=== PATIENT | female | born 1950 | race Caucasian/White ===

== ENCOUNTER 2017-08-12 17:27 | Emergency (ER) | payer MEDICARE, OTHER ==
[~2017-08-12] VITALS: Ht 170.2 cm; Wt 78.3 kg
[~2017-08-12 17:27] MED LIST: AMBI12.5 PO; ASPI81 PO; DUONSOL2 NEB; FEXO180 PO; FISH1000 PO; GABA300C3 PO; LIDO5DIS35 TD; LORA-474 PO; MELA5CAP2 PO; NEXI40CA PO; ROSU20 PO; TOPR50TA PO; VARE1 PO; VENL75 PO; VITA5000 PO; [UNRECOGNIZED DRUG - CODE] OR
[2017-08-12 17:32] VITALS: BP 166/82; PULSE 69; RESP 16; TEMP 98.3; O2SAT 97
--- NOTE | 2017-08-12 17:49 | PD ---
HPI Chief Complaint: Edema Time Seen by Provider: 17:45 Travel History International Travel<30 days: No Contact w/Intl Traveler<30days: No Traveled to known affect area: No History of Present Illness HPI Patient comes in complaining of gradual swelling to bilateral lower extremities , been going on worsening over the last 2-3 days. She contacted her primary care who directed her to the emergency department. Patient states that it is alleviated by raising her legs and appears to worsen with standing or sitting activity. Patient denies any associated factors such as fever, shortness of breath, chest pain. Patient also denies nausea vomiting diarrhea abdominal pain flank pain. Patient also denies any associated runny nose/sore throat/ productive cough. No known drug allergy Past medical history significant for TIA, syncope, right bundle branch block, hypercholesterolemia, left upper lobe removed, sleep apnea, diverticulitis, esophageal spasms, hiatal hernia, GERD, reflux, cholecystectomy, appendectomy, claustrophobia, left lung cancer, esophageal strictures, fibromyalgia. PFSH Past Medical History Arthritis: Yes Cancer: Yes (LEFT LUNG CANCER) Cardiomyopathy: Yes (ANGINA, RBBB) Cardiovascular Problems: Yes High Cholesterol: Yes Chest Pain: Yes (ANGINA) Cerebrovascular Accident: Yes (TIA) Diabetes: No Endocrine: No GERD: Yes Genitourinary: No Hepatitis: No Hiatal Hernia: Yes (GERD, REFLUX) Hypertension: Yes Immune Disorder: Yes (FIBROMYALGIA) Musculoskeletal: Yes ('PINCHED NERVES IN LOWER BACK', SCIATICA) Neurologic: Yes Psychiatric: No Reproductive: No Respiratory: Yes (Left Upper lobectomy) Sleep Apnea: Yes Thyroid Disease: No ?: Not Menopausal: Yes : 3 Para: 3 Past Surgical History Abdominal Surgery: Yes (CHOLECYSTECTOMY,APPENDECTOMY) Appendectomy: Yes (2002) Cholecystectomy: Yes (2002) Gynecologic Surgery: Yes (EXCISION BARTHOLIN CYST) Thoracic Surgery: Yes (LEFT UPPER LOBE REMOVED, ) Family History Family Hypercholesterolemia: Yes Social History Alcohol Use: Yes (VERY RARE ,<1 DRINK A MONTH) Tobacco Use: Yes (1 PPD X 35 YRS) Substance Use: No Allergies-Medications (Allergen,Severity, Reaction): Coded Allergies: No Known Allergies (Verified Adverse Reaction, Unknown, 08/12/17) Reported Meds & Prescriptions Reported Meds & Active Scripts Active Lasix (Furosemide) 40 Mg Tab 40 Mg PO DAILY Reported Lidoderm Patch (Lidocaine) 5 % Dis 1 Patch TD TIDPRN Aspirin 81 Mg Tab 81 Mg PO HS Effexor 75 Mg Tab (Venlafaxine HCl) 75 Mg Tab 3 Tab PO DAILY Vitamin D-3 (Cholecalciferol) 5,000 Unit Tab 5,000 Unit PO DAILY Fish Oil 1,000 Mg Cap 1,400 Mg PO HS Crestor (Rosuvastatin Calcium) 20 Mg Tab 20 Mg PO HS Resp: Albuterol 2.5 Mg/Ipratropium 0.5 Mg (Albuterol/Ipratropium) 1 Amp Nebu 1 Amp NEB BIDPRN Ativan (Lorazepam) 1 Mg Tab 1 Mg PO BIDPRN Melatonin 5 Mg Cap 5 Mg PO DIRECTED PT TAKES 15-20 MG HS Ambien Cr (Zolpidem Tartrate) 12.5 Mg Tab 12.5 Mg PO HSPRN INSOMNIA Chantix 1 Mg Continuing Month Pack (Varenicline) 1 Mg Tab 1 Mg PO BID Gabapentin 300 Mg Cap 600 Mg PO TID Toprol Xl (Metoprolol Succinate) 50 Mg Tabcr 50 Mg PO DAILY Nexium (Esomeprazole Magnesium) 40 Mg Cap 40 Mg PO DAILY Yael (Fexofenadine HCl) 180 Mg Tab 180 Mg PO DAILYPRN Hyomax-Sr (Hyoscyamine Sulfate) 0.375 Mg Tab 0.375 Mg OR DIRECTED Review of Systems General / Constitutional: No: Fever Eyes: No: Visual changes HENT: No: Headaches Cardiovascular: Positive: Edema Respiratory: No: Shortness of Breath Gastrointestinal: No: Abdominal Pain Genitourinary: No: Dysuria Musculoskeletal: No: Pain Skin: No Rash Neurologic: No: Weakness Psychiatric: No: Depression Endocrine: No: Polydipsia Hematologic/Lymphatic: No: Easy Bruising Physical Exam Narrative GENERAL: SKIN: Warm and dry. HEAD: Atraumatic. Normocephalic. EYES: Pupils equal and round. No scleral icterus. No injection or drainage. ENT: No nasal bleeding or discharge. Mucous membranes pink and moist. NECK: Trachea midline. No JVD. CARDIOVASCULAR: Regular rate and rhythm. RESPIRATORY: No accessory muscle use. Clear to auscultation. Breath sounds equal bilaterally. GASTROINTESTINAL: Abdomen soft, non-tender, nondistended. MUSCULOSKELETAL: Extremities without clubbing, cyanosis, BLE PITTING EDEMA 2+ , No obvious deformities. NEUROLOGICAL: Awake and alert. No obvious cranial nerve deficits. Motor grossly within normal limits. Five out of 5 muscle strength in the arms and legs. Normal speech. PSYCHIATRIC: Appropriate mood and affect; insight and judgment normal. Data Data Last Documented VS Vital Signs Date Time Temp Pulse Resp B/P (MAP) Pulse Ox O2 Delivery O2 Flow Rate FiO2 08/12/17 19:26 61 18 128/78 (95) 98 Room Air 08/12/17 17:32 98.3 Orders Orders B-Type Natriuretic Peptide (08/12/17 17:45) Complete Blood Count With Diff (08/12/17 17:45) Comprehensive Metabolic Panel (08/12/17 17:45) Prothrombin Time / Inr (Pt) (08/12/17 17:45) Act Partial Throm Time (Ptt) (08/12/17 17:45) Ecg Monitoring (08/12/17 17:45) Iv Access Insert/Monitor (08/12/17 17:45) Oximetry (08/12/17 17:45) Us Leg Venous Doppler Bilat (08/12/17 18:04) Cta Runoff W Iv Contrast W 3d (08/12/17 ) Iohexol 350 Inj (Omnipaque 350 Inj) (08/12/17 20:31) Labs Laboratory Tests Test 08/12/17 18:19 White Blood Count 8.1 TH/MM3 Red Blood Count 4.61 MIL/MM3 Hemoglobin 13.1 GM/DL Hematocrit 38.6 % Mean Corpuscular Volume 83.6 FL Mean Corpuscular Hemoglobin 28.4 PG Mean Corpuscular Hemoglobin Concent 33.9 % Red Cell Distribution Width 15.2 % Platelet Count 259 TH/MM3 Mean Platelet Volume 9.0 FL Neutrophils (%) (Auto) 52.5 % Lymphocytes (%) (Auto) 36.1 % Monocytes (%) (Auto) 6.0 % Eosinophils (%) (Auto) 4.2 % Basophils (%) (Auto) 1.2 % Neutrophils # (Auto) 4.3 TH/MM3 Lymphocytes # (Auto) 2.9 TH/MM3 Monocytes # (Auto) 0.5 TH/MM3 Eosinophils # (Auto) 0.3 TH/MM3 Basophils # (Auto) 0.1 TH/MM3 CBC Comment DIFF FINAL Differential Comment Prothrombin Time 10.5 SEC Prothromb Time International Ratio 1.0 RATIO Activated Partial Thromboplast Time 25.9 SEC Blood Urea Nitrogen 15 MG/DL Creatinine 0.72 MG/DL Random Glucose 123 MG/DL Total Protein 6.1 GM/DL Albumin 3.1 GM/DL Calcium Level 8.5 MG/DL Alkaline Phosphatase 76 U/L Aspartate Amino Transf (AST/SGOT) 16 U/L Alanine Aminotransferase (ALT/SGPT) 23 U/L Total Bilirubin 0.2 MG/DL Sodium Level 142 MEQ/L Potassium Level 3.6 MEQ/L Chloride Level 107 MEQ/L Carbon Dioxide Level 30.6 MEQ/L Anion Gap 4 MEQ/L Estimat Glomerular Filtration Rate 81 ML/MIN B-Type Natriuretic Peptide 46 PG/ML MDM Medical Decision Making Medical Screen Exam Complete: Yes Emergency Medical Condition: Yes Medical Record Reviewed: Yes Differential Diagnosis Congestive heart failure versus kidney failure versus liver failure versus DVT versus peripheral arterial disease Narrative Course cbc without leukocytosis, anemia or left shift. normal platelet count. coag wnl normal liver and kidney functions negative bnp normal electrolytes ultrasound neg for dvt bilaterally Diagnosis Primary Impression: Bilateral lower extremity pitting edema Referrals: Charlie Castle MD for additional follow up and recommendations Patient Instructions: General Instructions, Leg Edema (ED) Additional Instructions: Your advised to use NICK stockings her medical compression stockings bilaterally to help you reduce the amount of swelling. Also you can use Lasix prescription he will only need to 3 tablets that I have written for, to help you reduce the swelling but only use those after you have worn your compression stockings for 24 hours Scripts Furosemide (Lasix) 40 Mg Tab 40 MG PO DAILY, #3 TAB 0 Refills Prov: Luis Fernando Arredondo MD 08/12/17 Disposition: 01 DISCHARGE HOME Condition: Stable Luis Fernando Arredondo MD Aug 12, 2017 17:49
[2017-08-12 17:53] VITALS: O2SAT 97
[2017-08-12 18:29] LABS: AUTOMATED NEUTROPHIL # 4.3 TH/MM3 (1.8-7.7); BASOPHIL # 0.1 TH/MM3 (0-0.2); BASOPHIL % 1.2 % (0.0-2.0); EOSINOPHIL # 0.3 TH/MM3 (0-0.4); EOSINOPHIL % 4.2 % (0.0-4.0); HEMATOCRIT 38.6 % (35.0-46.0); HEMOGLOBIN 13.1 GM/DL (11.6-15.3); LYMPH % 36.1 % (9.0-44.0); LYMPHOCYTE # 2.9 TH/MM3 (1.0-4.8); MEAN CELL VOLUME 83.6 FL (80.0-100.0); MEAN CORPUSCULAR HEMOGLOBIN 28.4 PG (27.0-34.0); MEAN CORPUSCULAR HGB CONC 33.9 % (32.0-36.0); MONOCYTE # 0.5 TH/MM3 (0-0.9); NEUT % 52.5 % (16.0-70.0); PLATELET COUNT 259 TH/MM3 (150-450); RED BLOOD COUNT 4.61 MIL/MM3 (4.00-5.30); RED CELL DISTRIBUTION WIDTH 15.2 % (11.6-17.2); WHITE BLOOD COUNT 8.1 TH/MM3 (4.0-11.0)
[2017-08-12 18:37] LABS: CHLORIDE 107 MEQ/L (98-107); SODIUM (NA) 142 MEQ/L (136-145)
[2017-08-12 18:40] LABS: CALCIUM 8.5 MG/DL (8.5-10.1)
[2017-08-12 18:41] LABS: ALBUMIN 3.1 GM/DL (3.4-5.0); BICARBONATE 30.6 MEQ/L (21.0-32.0); BLOOD UREA NITROGEN 15 MG/DL (7-18); GLUCOSE,RANDOM 123 MG/DL (74-106); PROTHROMBIN TIME - PATIENT 10.5 SEC (9.8-11.6)
[2017-08-12 18:44] LABS: ALT (GPT) 23 U/L (10-53); AST (GOT) 16 U/L (15-37); CREATININE 0.72 MG/DL (0.50-1.00); GLOMERULAR FILTRATION RATE 81 ML/MIN (>89)
[2017-08-12 18:46] LABS: TOTAL BILIRUBIN ADULT 0.2 MG/DL (0.2-1.0); TOTAL PROTEIN 6.1 GM/DL (6.4-8.2)
[2017-08-12 18:47] LABS: ALKALINE PHOSPHATASE 76 U/L (45-117)
[2017-08-12 19:26] VITALS: BP 128/78; PULSE 61; RESP 18; O2SAT 98
[2017-08-12] MEDS ORDERED: FURO1TAB60 PO (19:30)
--- NOTE | 2017-08-12 19:59 | RADRPT ---
EXAM DATE: 08/12/2017 7:28 PM EDT AGE/SEX: 67 years / Female INDICATIONS: Bilateral lower extremity edema and redness. CLINICAL DATA: This is the patient's initial encounter. Patient reports that signs and symptoms have been present for 1 week and indicates a pain score of 1/10. MEDICAL/SURGICAL HISTORY: Transient ischemic attack. Hypercholesterolemia. Diverticulitis. A ngina. Cardiomyopathy. Sleep Apnea. Esophageal spasms. GERD. Arthritis. Sciatica. Fibromyalgia . Left lung cancer. Cholecystectomy. Appendectomy. Lobectomy. Bladder sling removal. Bartholin Cyst removal. Bilateral Fifth digit surgery. COMPARISON: No prior exams available for comparison. TECHNIQUE: Venous ultrasound of both lower extremities was performed from the inguinal ligament to t he proximal calf. Real-time, color Doppler and spectral tracing, compression and augmentation techni ques were used. FINDINGS: Right Leg: Normal compression of the deep venous system from the inguinal region to the proximal mann f. No echogenic clot is seen. Normal response of the venous system to augmentation and respiration. Left Leg: Normal compression of the deep venous system from the inguinal region to the proximal calf . No echogenic clot is seen. Normal response of the venous system to augmentation and respiration. Other: None. CONCLUSION: 1. No sonographic evidence for lower extremity DVT. Electronically signed by: Wang Dick MD 08/12/2017 7:57 PM EDT
[2017-08-12] MEDS ORDERED: IOHEXOL 350 MG/ML 10 ML VIAL (for RAD DIAG) IVCONTRAST ONE (20:31)
--- NOTE | 2017-08-12 22:08 | RADRPT ---
EXAM DATE: 08/12/2017 9:20 PM EDT AGE/SEX: 67 years / Female INDICATIONS: Swollen feet and ankles for 1 week CLINICAL DATA: This is the patient's initial encounter. Patient reports that signs and symptoms have been present for 1 week and indicates a pain score of 2/10. MEDICAL/SURGICAL HISTORY: Cerebrovascular disease. Gastroesophageal reflux disease. Cholecystectom y. Appendectomy. RADIATION DOSE: 19.16 CTDI (mGy) COMPARISON: No prior exams available for comparison. TECHNIQUE: Volumetric scanning was performed using a multi-row detector CT scanner during bolus infu ruthann of 100 ml Omnipaque 350 (iohexol) nonionic water-soluble contrast as a single exam dose. The data was post processed with a variety of visualization algorithms including full volume maximum inte nsity projection, multi-planar sliding thin slab reformation, curved planar reformation, and surface rendering techniques. Using automated exposure control and adjustment of the mA and/or kV according to patient size, radiation dose was kept as low as reasonably achievable to obtain optimal diagnostic quality images. DICOM format image data is available electronically for review and comparison. FINDINGS: Angiographic Findings: Abdominal Aorta: Mild mixed plaque of the abdominal aorta with focal infrarenal aortic ectasia measu ring up to 3 cm in axial dimension. Renal Arteries: Single patent renal arteries. Mesenteric Arteries: Celiac, SMA, and MARGE are patent. Variant celiac anatomy with direct origin of th e right hepatic artery from aorta. Right side: Inflow: Mild atherosclerotic calcifications of the iliac arteries without significant flow-limiting s tenosis. The common femoral artery is patent. Outflow: The profunda is patent. Minimal scattered calcified plaque in the distal SFA without signifi cant flow-limiting stenosis. The popliteal artery is patent. Runoff: Anterior tibial artery is diminutive in caliber and not well demonstrated beyond the mid to d istal calf. Posterior tibial artery is very diminutive in caliber and not well demonstrated beyond th e proximal calf. The peroneal artery is the dominant artery and reconstitutes the posterior tibial ar [place] at the ankle. Left side: Inflow: Mild atherosclerotic calcifications of the iliac arteries without significant flow-limiting s tenosis. The common femoral artery is patent. Outflow: The profunda is patent. Minimal scattered calcified plaque in the distal SFA without signifi cant flow-limiting stenosis. The popliteal artery is patent. Runoff: Similar to the right side. Anterior tibial artery is diminutive in caliber and not well demon strated beyond the mid to distal calf. Posterior tibial artery is very diminutive in caliber and not well demonstrated beyond the proximal calf. The peroneal artery is the dominant artery and reconstitu steve the posterior tibial artery at the ankle. General Findings: LOWER LUNGS: The visualized lower lungs are clear. LIVER: Subcentimeter hypodense lesion in the posterior right lobe of the liver which is too small to fully characterize. SPLEEN: Homogeneous density without enlargement. PANCREAS: Unremarkable without mass or calcification. KIDNEYS: 2 cm exophytic indeterminate density cystic lesion in the posterior mid right kidney. Small subcentimeter low-density lesion in the superior pole of the left kidney which is too small to fully characterize. Kidneys otherwise unremarkable with without evidence for hydronephrosis or radiopaque renal calculi. ADRENAL GLANDS: 1.7 x 1.3 cm left adrenal mass and adjacent 1 cm anterior adrenal mass with indeterm inate density. BOWEL/MESENTERY: The bowel loops are grossly unremarkable. The cecum and sigmoid colon have a keegan l configuration. ABDOMINAL WALL: Intact. RETROPERITONEUM: No evidence of adenopathy in the retrocrural, para-aortic, or deep pelvic regions. BLADDER: Contours are smooth. REPRODUCTIVE: No abnormal masses or calcifications seen. INGUINAL: The inguinal region is unremarkable without evidence of adenopathy. BONY STRUCTURES: Unremarkable. CONCLUSION: 1. Mild infrarenal aortic ectasia measuring up to 3 cm. 2. No significant inflow or outflow stenosis. 3. Limited two-vessel runoff bilaterally with very small caliber anterior tibial artery not visualiz ed beyond the mid calf and posterior tibial artery not visualized beyond the very proximal calf. The peroneal arteries are dominant with reconstitution of the posterior tibial arteries at the ankle. Thi s may represent anatomic variation given symmetrical appearance although small vessel disease cannot be entirely excluded. 4. 1.7 cm an adjacent 1 cm left adrenal masses with indeterminate densities. MRI adrenal mass protoc ol examination may be performed for further evaluation on an outpatient basis as clinically indicated . 5. 2 subcentimeter indeterminate density exophytic cystic lesion in the posterior mid left kidney. F ollow-up ultrasound examination may be performed in 6 months as clinically warranted. Electronically signed by: Wang Dick MD 08/12/2017 10:07 PM EDT
--- NOTE | 2017-08-12 22:19 | PD ---
Physical Exam Time Seen by Provider: 22:15 Narrative The CTA runoff with IV contrast with 3D reconstruction shows mild infrarenal aortic ectasia measuring up to 3 cm. No significant inflow or outflow stenosis. Limited two-vessel runoff bilaterally with very small caliber anterior tibial artery not visualized beyond the mid calf and posterior tibial artery not visualized beyond the very proximal calf. The the peroneal arteries are dominant with reconstruction of the posterior tibial arteries at the ankle. This may represent an anatomic variation giving symmetrical appearance although small vessel disease cannot be entirely excluded. Also there is a 1.7 m adjacent 1 cm left adrenal mass with indeterminate densities. There are 2 subcentimeter indeterminate density exophytic cystic lesions in the mid posterior left kidney, follow-up ultrasound may be performed as indicated. The complete metabolic profile shows a GFR of 81 with glucose 123 and total protein 6.1 and albumin 3.1 and anion gap of 4 but is otherwise unremarkable. The ultrasound venous Doppler bilaterally shows no sonographic evidence for lower extremity DVT. The BNP is 46 and the EKG shows atrial fibrillation with rapid ventricular response of 120. The CBC is normal. The pro time is 10.5, INR 1.0 and APTT is 25.9. Data Data Last Documented VS Vital Signs Date Time Temp Pulse Resp B/P (MAP) Pulse Ox O2 Delivery O2 Flow Rate FiO2 08/12/17 22:16 08/12/17 19:26 61 18 98 Room Air 08/12/17 17:32 98.3 Orders Orders B-Type Natriuretic Peptide (08/12/17 17:45) Complete Blood Count With Diff (08/12/17 17:45) Comprehensive Metabolic Panel (08/12/17 17:45) Prothrombin Time / Inr (Pt) (08/12/17 17:45) Act Partial Throm Time (Ptt) (08/12/17 17:45) Ecg Monitoring (08/12/17 17:45) Iv Access Insert/Monitor (08/12/17 17:45) Oximetry (08/12/17 17:45) Us Leg Venous Doppler Bilat (08/12/17 18:04) Cta Runoff W Iv Contrast W 3d (08/12/17 ) Iohexol 350 Inj (Omnipaque 350 Inj) (08/12/17 20:31) Ed Discharge Order (08/12/17 22:14) Labs Laboratory Tests Test 6/19/18 18:19 White Blood Count 8.1 TH/MM3 Red Blood Count 4.61 MIL/MM3 Hemoglobin 13.1 GM/DL Hematocrit 38.6 % Mean Corpuscular Volume 83.6 FL Mean Corpuscular Hemoglobin 28.4 PG Mean Corpuscular Hemoglobin Concent 33.9 % Red Cell Distribution Width 15.2 % Platelet Count 259 TH/MM3 Mean Platelet Volume 9.0 FL Neutrophils (%) (Auto) 52.5 % Lymphocytes (%) (Auto) 36.1 % Monocytes (%) (Auto) 6.0 % Eosinophils (%) (Auto) 4.2 % Basophils (%) (Auto) 1.2 % Neutrophils # (Auto) 4.3 TH/MM3 Lymphocytes # (Auto) 2.9 TH/MM3 Monocytes # (Auto) 0.5 TH/MM3 Eosinophils # (Auto) 0.3 TH/MM3 Basophils # (Auto) 0.1 TH/MM3 CBC Comment DIFF FINAL Differential Comment Prothrombin Time 10.5 SEC Prothromb Time International Ratio 1.0 RATIO Activated Partial Thromboplast Time 25.9 SEC Blood Urea Nitrogen 15 MG/DL Creatinine 0.72 MG/DL Random Glucose 123 MG/DL Total Protein 6.1 GM/DL Albumin 3.1 GM/DL Calcium Level 8.5 MG/DL Alkaline Phosphatase 76 U/L Aspartate Amino Transf (AST/SGOT) 16 U/L Alanine Aminotransferase (ALT/SGPT) 23 U/L Total Bilirubin 0.2 MG/DL Sodium Level 142 MEQ/L Potassium Level 3.6 MEQ/L Chloride Level 107 MEQ/L Carbon Dioxide Level 30.6 MEQ/L Anion Gap 4 MEQ/L Estimat Glomerular Filtration Rate 81 ML/MIN B-Type Natriuretic Peptide 46 PG/ML [facility] Medical Record Reviewed: Yes Supervised Visit with DANIEL: No Differential Diagnosis Peripheral artery disease, congestive heart failure, electrolyte disorder, DVT Narrative Course The patient does have peripheral artery disease. There is no evidence for congestive heart failure or electrolyte disorder. She does not have DVT. She needs to follow-up with her primary care physician, Dr. Collado, as soon as possible on this. Dr. Arredondo wrote her a prescription for Lasix. Diagnosis Primary Impression: Bilateral lower extremity pitting edema Additional Impression: Peripheral artery disease Referrals: Charlie Castle MD for additional follow up and recommendations Patient Instructions: General Instructions, Leg Edema (ED) Additional Instruction: Your advised to use NICK stockings her medical compression stockings bilaterally to help you reduce the amount of swelling. Also you can use Lasix prescription he will only need to 3 tablets that I have written for, to help you reduce the swelling but only use those after you have worn your compression stockings for 24 hours Med/Other Pt SpecificInfo: Prescription(s) given Scripts Furosemide (Lasix) 40 Mg Tab 40 MG PO DAILY, #3 TAB 0 Refills Prov: Luis Fernando Arredondo MD 08/12/17 Disposition: 01 DISCHARGE HOME Condition: Stable Arthur Joyce MD Aug 12, 2017 22:19
== END 2017-08-12 22:38 | disposition home or self-care (01) ==
LOC: PHED 17:27
DX: R60.0 Localized edema (principal); I73.9 Peripheral vascular disease, unspecified; E78.00 Pure hypercholesterolemia, unspecified; I10 Essential (primary) hypertension; M19.90 Unspecified osteoarthritis, unspecified site; M79.7 Fibromyalgia; I45.10 Unspecified right bundle-branch block; I20.9 Angina pectoris, unspecified; F17.210 Nicotine dependence, cigarettes, uncomplicated; G47.30 Sleep apnea, unspecified; Z86.73 Personal history of transient ischemic attack (TIA), and cerebral infarction without residual deficits; Z79.82 Long term (current) use of aspirin; Z79.899 Other long term (current) drug therapy
CPT/HCPCS: 75635; 80053; 83880; 85025; 85610; 85730; 93970; 99285; Q9967